=== PATIENT | female | born 1960 | race African-American/Black ===

== ENCOUNTER 2017-05-14 08:06 | Emergency (ER) | payer MEDICAID, OTHER ==
[~2017-05-14] VITALS: Ht 154.9 cm; Wt 95.0 kg
[~2017-05-14 08:06] MED LIST: AMLO10TA80 PO; ATOR20TA65 PO; CARV12.545 PO; CEPH-569 PO; FOLI0.8T23 PO; FURO80TA3 PO; INSU100I28 SQ; PENT400T2 PO; TRAM50TA3 PO
[2017-05-14 09:17] LABS: BASOPHILS % 0.7 % (0.0-2.0); EOSINOPHILS % 5.6 % (0.0-5.0); HEMATOCRIT. 28.2 % (36.0-48.0); HEMOGLOBIN. 8.7 g/dL (12.0-16.0); LYMPHOCYTES % 21.9 % (20.0-50.0); MEAN CORPUSCULAR HEMOGLOBIN 26.1 pg (28.0-32.0); MEAN CORPUSCULAR VOLUME 85.1 fL (81.0-99.0); MEAN PLATELET VOLUME 7.5 fl (7.4-10.4); NEUTROPHILS % 62.8 % (40.0-76.0); PLATELET 338 x1000/uL (130-400); RED BLOOD CELL COUNT 3.31 mill/uL (4.2-5.4); RED CELL DISTRIBUTION WIDTH 17.5 % (11.6-14.6)
[2017-05-14 09:25] LABS: INR 1.1; PARTIAL THROMBOPLASTIN TIME 28.9 sec (23.4-31.0)
[2017-05-14 09:29] LABS: CHLORIDE 102 mEq/L (98-107)
[2017-05-14 09:34] LABS: CREATINE KINASE 206 IU/L (26-192); TROPONIN I < 0.02 ng/mL (0.00-0.04)
[2017-05-14 12:23] LABS: BG BASE EXCESS -3.6 mmol/L (-2.0-2.0); BG CARBOXYHEMOGLOBIN 0.4 % (0.5-1.5); BG DEOXYHEMOGLOBIN 2.9 % (0.0-5.0); BG FRACTION INSPIRED OXYGEN 21; BG HCO3 ACT 20.9 mmol/L (22.0-26.0); BG METHEMOGLOBIN 0.3 % (0.0-1.5); BG OXYGEN SATURATION 97.1 % (92.0-98.5); BG OXYHEMOGLOBIN 96.4 % (94.0-97.0); BG PCO2 35.5 mmHg (35.0-45.0); BG PH 7.388 (7.350-7.450); BG PO2 95.3 mmHg (75.0-100.0); BG SAMPLE SITE LEFT RADIAL; BG TOTAL HEMOGLOBIN 9.7 g/dL (12.0-18.0); BG VENT MODE ROOM AIR
[2017-05-14 15:37] VITALS: BP 122/79
== END 2017-05-14 15:38 | disposition left against medical advice (07) ==
LOC: ER 08:24 → CANBEDREQ 15:39
DX: I13.2 Hypertensive heart and chronic kidney disease with heart failure and with stage 5 chronic kidney disease, or end stage renal disease (principal); E11.22 Type 2 diabetes mellitus with diabetic chronic kidney disease; I50.9 Heart failure, unspecified; N18.5 Chronic kidney disease, stage 5; D63.1 Anemia in chronic kidney disease; R42 Dizziness and giddiness; Z79.4 Long term (current) use of insulin; Z79.899 Other long term (current) drug therapy
CPT/HCPCS: 36415; 36600; 70450; 71045; 80053; 82375; 82550; 82553; 82805; 82962; 83735; 83880; 84484; 85025; 85610; 85730; 93005; 99285; Z7610

== ENCOUNTER 2019-05-27 09:02 | Emergency (ER) | payer MEDICAID ==
[~2019-05-27] VITALS: Ht 154.9 cm; Wt 90.0 kg
[~2019-05-27 09:02] MED LIST changes: +PENT400T16 PO; -PENT400T2 PO
[2019-05-27] MEDS ORDERED: ACETAMINOPHEN 325MG TABLET PO STA (10:57)
[2019-05-27 11:27] LABS: BASOPHILS % 0.5 % (0.0-2.0); EOSINOPHILS % 3.7 % (0.0-5.0); HEMATOCRIT. 30.5 % (36.0-48.0); HEMOGLOBIN. 9.5 g/dL (12.0-16.0); LYMPHOCYTES % 13.6 % (20.0-50.0); MEAN CORPUSCULAR HEMOGLOBIN 26.7 pg (28.0-32.0); MEAN CORPUSCULAR VOLUME 85.5 fL (81.0-99.0); MEAN PLATELET VOLUME 8.4 fl (7.4-10.4); MONOCYTES % 7.7 % (2.0-8.0); NEUTROPHILS % 74.5 % (40.0-76.0); PLATELET 297 x1000/uL (130-400); RED BLOOD CELL COUNT 3.56 mill/uL (4.2-5.4); RED CELL DISTRIBUTION WIDTH 15.1 % (11.6-14.6)
[2019-05-27 11:34] LABS: CHLORIDE 105 mEq/L (98-107)
[2019-05-27 15:51] LABS: CLARITY URINE CLEAR (CLEAR); COLOR URINE YELLOW (YELLOW); KETONES URINE NEGATIVE (NEGATIVE); LEUKOCYTE ESTERASE URINE NEGATIVE (NEGATIVE); NITRITE URINE NEGATIVE (NEGATIVE); OCCULT BLOOD URINE NEGATIVE (NEGATIVE); PROTEIN URINE NEGATIVE (NEGATIVE); SPECIFIC GRAVITY URINE 1.008 (1.005-1.030); UROBILINOGEN URINE 0.2 E.U./dL (0.2-1.0)
[2019-05-27 17:05] VITALS: BP 111/90
[2019-05-28] MEDS ORDERED: CALC0.5C10 PO (23:52)
[2019-05-28] MEDS ORDERED: ASPI-1497 PO (23:52)
== END 2019-05-27 17:05 | disposition home or self-care (01) ==
LOC: ER 11:49
DX: R53.81 Other malaise (principal); E11.9 Type 2 diabetes mellitus without complications; E78.00 Pure hypercholesterolemia, unspecified; I11.0 Hypertensive heart disease with heart failure; Z79.899 Other long term (current) drug therapy
CPT/HCPCS: 36415; 71045; 80053; 81003; 84484; 85025; 87804; 93005; 99285

== ENCOUNTER 2019-05-28 06:38 | Inpatient (IN) | payer MEDICAID ==
[~2019-05-28] VITALS: Ht 157.5 cm; Wt 90.7 kg
[2019-05-28] MEDS ORDERED: MAGNESIUM/ALUMINUM HYDROXIDE/SIMETHICONE 30ML UDC PO STA (11:33)
[2019-05-28 12:08] LABS: BASOPHILS % 0.7 % (0.0-2.0); EOSINOPHILS % 3.3 % (0.0-5.0); HEMOGLOBIN. 9.9 g/dL (12.0-16.0); LYMPHOCYTES % 14.8 % (20.0-50.0); MEAN CORPUSCULAR HEMOGLOBIN 26.8 pg (28.0-32.0); MEAN CORPUSCULAR VOLUME 86.2 fL (81.0-99.0); MEAN PLATELET VOLUME 8.8 fl (7.4-10.4); MONOCYTES % 7.8 % (2.0-8.0); NEUTROPHILS % 73.4 % (40.0-76.0); PLATELET 305 x1000/uL (130-400); RED BLOOD CELL COUNT 3.71 mill/uL (4.2-5.4); RED CELL DISTRIBUTION WIDTH 15.2 % (11.6-14.6)
[2019-05-28 12:18] LABS: CHLORIDE 107 mEq/L (98-107)
[2019-05-28] MEDS ORDERED: SODIUM CHLORIDE 0.9% 1000ML BAG (SEPSIS BOLUS) IV ONE (13:45)
[2019-05-28] MEDS ORDERED: LEVOFLOXACIN 750MG PREMIX 150 ML IV ONE (13:45)
[2019-05-28] MEDS ORDERED: HYDRALAZINE 20MG/ML VIAL IV PRN (18:30)
[2019-05-28] MEDS ORDERED: MORPHINE SULFATE 2 MG/ML CPJ (NOT FOR IM USE) IV PRN (18:30)
[2019-05-28] MEDS ORDERED: ONDANSETRON HCL 4MG/2ML INJ IV PRN (18:30)
[2019-05-28] MEDS ORDERED: DEXTROSE 50% WATER 50ML SYRINGE IV PRN (18:30)
[2019-05-28] MEDS ORDERED: GUAIFENESIN 200MG/10ML SUGAR FREE UDC PO PRN (18:30)
[2019-05-28] MEDS ORDERED: HYDROCODONE/ACETAMINOPHEN 10/325MG TABLET PO PRN (18:30)
[2019-05-28] MEDS ORDERED: DOCUSATE SODIUM 100MG CAPSULE PO PRN (18:30)
[2019-05-28] MEDS ORDERED: NA PHOS,M-B/NA PHOS,DI-BA ENEMA 118ML PR PRN (18:30)
[2019-05-28] MEDS ORDERED: ACETAMINOPHEN 325MG TABLET PO PRN (18:30)
[2019-05-28] MEDS ORDERED: MAGNESIUM/ALUMINUM HYDROXIDE/SIMETHICONE 30ML UDC PO PRN (18:30)
[2019-05-28] MEDS ORDERED: LORAZEPAM 2MG/ML CPJ IV PRN (18:30)
[2019-05-28] MEDS ORDERED: IPRATROPIUM/ALBUTEROL 0.5-3(2.5)MG/3ML NEB NEB PRN (18:30)
[2019-05-28] MEDS ORDERED: DIPHENHYDRAMINE 50MG/ML VIAL IV PRN (18:30)
[2019-05-28] MEDS ORDERED: BLOOD SUGAR DIAGNOSTIC STRIP TEST SCH (21:15)
[2019-05-28 22:00] VITALS: BP 161/66
[2019-05-28] MEDS ORDERED: INSULIN LISPRO 100 UNITS/ML SUBCUT SCH (22:30)
[2019-05-28] MEDS: SODIUM CHLORIDE 0.9% INJ 3ML FLUSH IVF SCH (22:58)
[2019-05-28] MEDS: CLONIDINE 0.1MG TABLET PO PRN (22:58)
[2019-05-28] MEDS ORDERED: CALC0.5C10 PO (23:52)
[2019-05-28] MEDS ORDERED: ASPI-1497 PO (23:52)
[2019-05-29] VITALS: BP 134/56
[2019-05-29 00:16] LABS: CREATINE KINASE 189 IU/L (26-192)
[2019-05-29 00:17] LABS: CREATINE KINASE MB FRACTION 2.8 ng/mL (0.5-3.6)
[2019-05-29 04:00] VITALS: BP 148/50
[2019-05-29] MEDS: SODIUM CHLORIDE 0.9% INJ 3ML FLUSH IVF SCH ×3 (06:19→21:37)
[2019-05-29 06:57] LABS: CHLORIDE 108 mEq/L (98-107)
[2019-05-29 06:58] LABS: BASOPHILS % 0.5 % (0.0-2.0); EOSINOPHILS % 2.7 % (0.0-5.0); HEMATOCRIT. 26.8 % (36.0-48.0); HEMOGLOBIN. 8.4 g/dL (12.0-16.0); LYMPHOCYTES % 16.2 % (20.0-50.0); MEAN CORPUSCULAR HEMOGLOBIN 26.7 pg (28.0-32.0); MEAN CORPUSCULAR VOLUME 85.4 fL (81.0-99.0); MONOCYTES % 9.3 % (2.0-8.0); NEUTROPHILS % 71.3 % (40.0-76.0); PLATELET 259 x1000/uL (130-400); RED BLOOD CELL COUNT 3.14 mill/uL (4.2-5.4); RED CELL DISTRIBUTION WIDTH 15.7 % (11.6-14.6)
[2019-05-29 07:06] LABS: CREATINE KINASE 187 IU/L (26-192)
[2019-05-29 07:08] LABS: T4 FREE 1.25 ng/dL (0.76-1.46)
[2019-05-29 07:09] LABS: CREATINE KINASE MB FRACTION 2.7 ng/mL (0.5-3.6)
[2019-05-29 08:00] VITALS: BP 167/56
[2019-05-29] MEDS: BLOOD SUGAR DIAGNOSTIC STRIP TEST SCH ×4 (08:07→21:37)
[2019-05-29] MEDS: INSULIN LISPRO 100 UNITS/ML SUBCUT SCH ×4 (09:30→21:00)
[2019-05-29] MEDS: ENOXAPARIN 40MG/0.4ML SYR SUBCUT SCH (09:32)
[2019-05-29] MEDS: CLONIDINE 0.1MG TABLET PO PRN (09:32)
[2019-05-29] MEDS ORDERED: INFLUENZA VIRUS VACCINE(AFLURIA) 0.5ML SYR IM ONE (10:00)
[2019-05-29 10:36] LABS: T4 FREE 1.24 ng/dL (0.76-1.46)
[2019-05-29] MEDS ORDERED: ATORVASTATIN CALCIUM 20MG TABLET PO SCH (13:15)
[2019-05-29] MEDS: ASPIRIN 81MG EC TABLET PO SCH (13:45)
[2019-05-29] MEDS: AMLODIPINE 10MG TABLET PO SCH (13:46)
[2019-05-29] MEDS: CARVEDILOL 12.5MG TABLET PO SCH ×2 (13:46→21:36)
[2019-05-29 16:51] LABS: CREATINE KINASE 192 IU/L (26-192)
[2019-05-29 16:53] LABS: CREATINE KINASE MB FRACTION 2.7 ng/mL (0.5-3.6)
[2019-05-29] MEDS: CALCITRIOL 0.5MCG CAPSULE PO SCH (18:35)
[2019-05-29] MEDS: PANTOPRAZOLE 40MG DR TABLET PO SCH (18:35)
[2019-05-29] MEDS: SODIUM CHLORIDE 0.45% 1,000 ML IV SCH (18:37)
[2019-05-29] MEDS: SEVELAMER CARBONATE 800 MG TABLET PO SCH (18:39)
[2019-05-29 20:00] VITALS: BP 140/49
[2019-05-29] MEDS: ATORVASTATIN CALCIUM 20MG TABLET PO SCH (21:36)
[2019-05-29 23:16] LABS: CLARITY URINE CLEAR (CLEAR); COLOR URINE YELLOW (YELLOW); KETONES URINE NEGATIVE (NEGATIVE); LEUKOCYTE ESTERASE URINE NEGATIVE (NEGATIVE); NITRITE URINE NEGATIVE (NEGATIVE); OCCULT BLOOD URINE NEGATIVE (NEGATIVE); PROTEIN URINE 1+ (NEGATIVE); SPECIFIC GRAVITY URINE 1.009 (1.005-1.030); UROBILINOGEN URINE 0.2 E.U./dL (0.2-1.0)
[2019-05-30] VITALS: BP 157/65
[2019-05-30 01:13] LABS: CREATINE KINASE 199 IU/L (26-192)
[2019-05-30 01:14] LABS: CREATINE KINASE MB FRACTION 2.9 ng/mL (0.5-3.6)
[2019-05-30 04:00] VITALS: BP 155/61
[2019-05-30] MEDS: SODIUM CHLORIDE 0.9% INJ 3ML FLUSH IVF SCH ×3 (05:53→21:30)
[2019-05-30] MEDS: BLOOD SUGAR DIAGNOSTIC STRIP TEST SCH ×4 (07:40→20:18)
[2019-05-30 08:00] VITALS: BP 155/64
[2019-05-30 08:00] LABS: CHLORIDE 108 mEq/L (98-107)
[2019-05-30 08:08] LABS: BASOPHILS % 0.8 % (0.0-2.0); EOSINOPHILS % 2.7 % (0.0-5.0); HEMATOCRIT. 29.6 % (36.0-48.0); HEMOGLOBIN. 9.3 g/dL (12.0-16.0); LYMPHOCYTES % 16.2 % (20.0-50.0); MEAN CORPUSCULAR HEMOGLOBIN 26.9 pg (28.0-32.0); MEAN CORPUSCULAR VOLUME 86.1 fL (81.0-99.0); MEAN PLATELET VOLUME 8.8 fl (7.4-10.4); MONOCYTES % 8.7 % (2.0-8.0); NEUTROPHILS % 71.6 % (40.0-76.0); PLATELET 284 x1000/uL (130-400); RED BLOOD CELL COUNT 3.44 mill/uL (4.2-5.4); RED CELL DISTRIBUTION WIDTH 15.1 % (11.6-14.6)
[2019-05-30 08:09] LABS: CREATINE KINASE 195 IU/L (26-192)
[2019-05-30 08:12] LABS: CREATINE KINASE MB FRACTION 2.8 ng/mL (0.5-3.6)
[2019-05-30] MEDS: ASPIRIN 81MG EC TABLET PO SCH (10:30)
[2019-05-30] MEDS: SEVELAMER CARBONATE 800 MG TABLET PO SCH ×3 (10:30→18:36)
[2019-05-30] MEDS: AMLODIPINE 10MG TABLET PO SCH (10:31)
[2019-05-30] MEDS: CARVEDILOL 12.5MG TABLET PO SCH ×2 (10:31→21:29)
[2019-05-30] MEDS: ENOXAPARIN 40MG/0.4ML SYR SUBCUT SCH (10:32)
[2019-05-30] MEDS: INSULIN LISPRO 100 UNITS/ML SUBCUT SCH ×4 (10:33→20:18)
[2019-05-30] MEDS: CALCITRIOL 0.5MCG CAPSULE PO SCH (10:53)
[2019-05-30] MEDS ORDERED: MAGNESIUM 1 G PREMIX 100 ML IV NR (11:00)
[2019-05-30] MEDS: SODIUM CHLORIDE 0.45% 1,000 ML IV SCH (11:02)
[2019-05-30 12:00] VITALS: BP 118/55
[2019-05-30] MEDS: PANTOPRAZOLE 40MG DR TABLET PO SCH (12:31)
[2019-05-30 16:00] VITALS: BP 145/52
[2019-05-30 20:19] LABS: TOTAL IRON BINDING CAPACITY 261 ug/dL (250-450)
[2019-05-30 20:48] VITALS: BP 165/55
[2019-05-30] MEDS: ATORVASTATIN CALCIUM 20MG TABLET PO SCH (21:29)
[2019-05-31] VITALS: BP 190/58
[2019-05-31] MEDS: SODIUM CHLORIDE 0.45% 1,000 ML IV SCH ×2 (03:20→20:00)
[2019-05-31 04:00] VITALS: BP 112/58
[2019-05-31] MEDS: SODIUM CHLORIDE 0.9% INJ 3ML FLUSH IVF SCH ×2 (06:00→22:00)
[2019-05-31 06:43] LABS: BASOPHILS % 0.7 % (0.0-2.0); EOSINOPHILS % 3.4 % (0.0-5.0); HEMATOCRIT. 28.5 % (36.0-48.0); HEMOGLOBIN. 8.8 g/dL (12.0-16.0); LYMPHOCYTES % 15.3 % (20.0-50.0); MEAN CORPUSCULAR HEMOGLOBIN 26.4 pg (28.0-32.0); MEAN CORPUSCULAR VOLUME 85.4 fL (81.0-99.0); MEAN PLATELET VOLUME 8.9 fl (7.4-10.4); MONOCYTES % 8.8 % (2.0-8.0); NEUTROPHILS % 71.8 % (40.0-76.0); PLATELET 274 x1000/uL (130-400); RED BLOOD CELL COUNT 3.34 mill/uL (4.2-5.4); RED CELL DISTRIBUTION WIDTH 14.8 % (11.6-14.6)
[2019-05-31] MEDS: BLOOD SUGAR DIAGNOSTIC STRIP TEST SCH ×4 (07:40→21:00)
[2019-05-31 08:00] VITALS: BP 140/48
[2019-05-31] MEDS: INSULIN LISPRO 100 UNITS/ML SUBCUT SCH ×4 (08:10→21:00)
[2019-05-31] MEDS: DOCUSATE SODIUM 250MG CAPSULE PO SCH ×2 (09:00→17:00)
[2019-05-31] MEDS: SEVELAMER CARBONATE 800 MG TABLET PO SCH ×3 (09:55→18:47)
[2019-05-31] MEDS: CALCITRIOL 0.5MCG CAPSULE PO SCH (09:55)
[2019-05-31] MEDS: CARVEDILOL 12.5MG TABLET PO SCH ×2 (09:55→21:00)
[2019-05-31] MEDS: ENOXAPARIN 40MG/0.4ML SYR SUBCUT SCH (09:55)
[2019-05-31] MEDS: PANTOPRAZOLE 40MG DR TABLET PO SCH (09:56)
[2019-05-31] MEDS: AMLODIPINE 10MG TABLET PO SCH (09:59)
[2019-05-31] MEDS: ASPIRIN 81MG EC TABLET PO SCH (10:00)
[2019-05-31 12:00] VITALS: BP 134/55
[2019-05-31] MEDS ORDERED: EPOETIN ALFA 10000UNITS/ML VIAL SUBCUT ONE (18:45)
[2019-05-31 20:00] VITALS: BP 142/67
[2019-05-31] MEDS ORDERED: EPOETIN ALFA 10000UNITS/ML VIAL SUBCUT SCH (21:00)
[2019-05-31] MEDS: ATORVASTATIN CALCIUM 20MG TABLET PO SCH (21:00)
[2019-06-01] VITALS (7 sets, daily range): BP systolic 128–162; BP diastolic 47–67
[2019-06-01] MEDS: SODIUM CHLORIDE 0.9% INJ 3ML FLUSH IVF SCH ×3 (06:00→20:59)
[2019-06-01] MEDS: PANTOPRAZOLE 40MG DR TABLET PO SCH (07:40)
[2019-06-01] MEDS: INSULIN LISPRO 100 UNITS/ML SUBCUT SCH ×3 (08:10→18:27)
[2019-06-01] MEDS: SEVELAMER CARBONATE 800 MG TABLET PO SCH ×3 (08:10→18:26)
[2019-06-01] MEDS: BLOOD SUGAR DIAGNOSTIC STRIP TEST SCH ×4 (08:37→20:59)
[2019-06-01] MEDS: CALCITRIOL 0.5MCG CAPSULE PO SCH (08:59)
[2019-06-01] MEDS: ENOXAPARIN 40MG/0.4ML SYR SUBCUT SCH (08:59)
[2019-06-01] MEDS: ASPIRIN 81MG EC TABLET PO SCH (08:59)
[2019-06-01] MEDS: FERROUS SULFATE 325MG TABLET PO SCH ×3 (08:59→18:26)
[2019-06-01] MEDS: AMLODIPINE 10MG TABLET PO SCH (08:59)
[2019-06-01] MEDS: CARVEDILOL 12.5MG TABLET PO SCH ×2 (08:59→20:59)
[2019-06-01] MEDS: DOCUSATE SODIUM 250MG CAPSULE PO SCH ×2 (09:00→18:25)
[2019-06-01 11:12] LABS: HEMATOCRIT 27.7 % (36.0-48.0); HEMOGLOBIN 8.8 g/dL (12.0-16.0); MEAN CORPUSCULAR HEMOGLOBIN 27.1 pg (28.0-32.0); MEAN CORPUSCULAR VOLUME 85.8 fL (81.0-99.0); PLATELET 258 x1000/uL (130-400); RED BLOOD CELL COUNT 3.24 mill/uL (4.2-5.4); RED CELL DISTRIBUTION WIDTH 14.7 % (11.6-14.6)
[2019-06-01] MEDS: SODIUM CHLORIDE 0.45% 1,000 ML IV SCH (11:48)
[2019-06-01] MEDS: ATORVASTATIN CALCIUM 20MG TABLET PO SCH (20:59)
[2019-06-02] VITALS: BP 93/56
[2019-06-02 04:00] VITALS: BP 124/61
[2019-06-02] MEDS: SODIUM CHLORIDE 0.45% 1,000 ML IV SCH (05:20)
[2019-06-02] MEDS: SODIUM CHLORIDE 0.9% INJ 3ML FLUSH IVF SCH (05:21)
[2019-06-02] MEDS: INSULIN LISPRO 100 UNITS/ML SUBCUT SCH ×2 (06:02→08:10)
[2019-06-02] MEDS: BLOOD SUGAR DIAGNOSTIC STRIP TEST SCH (07:01)
[2019-06-02 07:19] LABS: BASOPHILS % 0.4 % (0.0-2.0); EOSINOPHILS % 2.4 % (0.0-5.0); HEMATOCRIT. 27.7 % (36.0-48.0); HEMOGLOBIN. 8.7 g/dL (12.0-16.0); MEAN CORPUSCULAR HEMOGLOBIN 26.9 pg (28.0-32.0); MEAN CORPUSCULAR VOLUME 85.5 fL (81.0-99.0); MEAN PLATELET VOLUME 8.7 fl (7.4-10.4); MONOCYTES % 7.5 % (2.0-8.0); NEUTROPHILS % 75.7 % (40.0-76.0); PLATELET 258 x1000/uL (130-400); RED BLOOD CELL COUNT 3.24 mill/uL (4.2-5.4)
[2019-06-02] MEDS: SEVELAMER CARBONATE 800 MG TABLET PO SCH (10:07)
[2019-06-02] MEDS: ENOXAPARIN 40MG/0.4ML SYR SUBCUT SCH (10:07)
[2019-06-02] MEDS: CALCITRIOL 0.5MCG CAPSULE PO SCH (10:07)
[2019-06-02] MEDS: AMLODIPINE 10MG TABLET PO SCH (10:08)
[2019-06-02] MEDS: DOCUSATE SODIUM 250MG CAPSULE PO SCH (10:08)
[2019-06-02] MEDS: FERROUS SULFATE 325MG TABLET PO SCH (10:08)
[2019-06-02] MEDS: ASPIRIN 81MG EC TABLET PO SCH (10:08)
[2019-06-02] MEDS: CARVEDILOL 12.5MG TABLET PO SCH (10:09)
[2019-06-02] MEDS: PANTOPRAZOLE 40MG DR TABLET PO SCH (10:09)
[2019-06-02 11:32] VITALS: BP 155/65
[2019-06-04] MEDS ORDERED: EPOETIN ALFA 10000UNITS/ML VIAL SUBCUT SCH (21:00)
[2019-06-07] MEDS ORDERED: EPOETIN ALFA 10000UNITS/ML VIAL SUBCUT SCH (21:00)
== END 2019-06-02 12:00 | disposition home or self-care (01) | DRG 469 ==
LOC: ER 06:38 → 7WST 14:10 → ENRESERV 20:54
PROVIDERS: ADMIT Internal Medicine; ATTEND Internal Medicine
DX: N17.0 Acute kidney failure with tubular necrosis (principal); E11.22 Type 2 diabetes mellitus with diabetic chronic kidney disease; I13.0 Hypertensive heart and chronic kidney disease with heart failure and stage 1 through stage 4 chronic kidney disease, or unspecified chronic kidney disease; I50.32 Chronic diastolic (congestive) heart failure; K80.20 Calculus of gallbladder without cholecystitis without obstruction; K42.9 Umbilical hernia without obstruction or gangrene; D64.9 Anemia, unspecified; E03.9 Hypothyroidism, unspecified; E66.9 Obesity, unspecified; E83.42 Hypomagnesemia; K21.9 Gastro-esophageal reflux disease without esophagitis; E78.5 Hyperlipidemia, unspecified; N18.4 Chronic kidney disease, stage 4 (severe); N25.81 Secondary hyperparathyroidism of renal origin; Z79.4 Long term (current) use of insulin; Z79.82 Long term (current) use of aspirin; Z88.8 Allergy status to other drugs, medicaments and biological substances; Z79.899 Other long term (current) drug therapy; Z68.36 Body mass index [BMI] 36.0-36.9, adult
CPT/HCPCS: 36415; 71045; 74176; 76700; 80048; 80053; 80061; 81003; 82270; 82550; 82553; 82728; 82962; 83036; 83540; 83550; 83605; 83735; 83880; 83970; 84100; 84439; 84443; 84484; 85025; 85027; 85379; 90686; 93005; 93306; 93970; 99291; J0885; J1650; J1815; J1956; J3475; J7030

== ENCOUNTER 2019-06-28 16:53 | Inpatient (IN) | payer MEDICAID ==
[~2019-06-28] VITALS: Ht 154.9 cm; Wt 96.7 kg
[~2019-06-28 16:53] MED LIST changes: +ASPI-1497 PO; +CALC0.5C10 PO; -CEPH-569 PO; -TRAM50TA3 PO
[2019-06-28 23:04] LABS: BASOPHILS % 0.5 % (0.0-2.0); EOSINOPHILS % 3.1 % (0.0-5.0); HEMATOCRIT. 32.7 % (36.0-48.0); HEMOGLOBIN. 10.4 g/dL (12.0-16.0); LYMPHOCYTES % 25.6 % (20.0-50.0); MEAN CORPUSCULAR VOLUME 85.2 fL (81.0-99.0); MEAN PLATELET VOLUME 8.6 fl (7.4-10.4); MONOCYTES % 6.6 % (2.0-8.0); NEUTROPHILS % 64.2 % (40.0-76.0); PLATELET 326 x1000/uL (130-400); RED BLOOD CELL COUNT 3.84 mill/uL (4.2-5.4); RED CELL DISTRIBUTION WIDTH 15.8 % (11.6-14.6)
[2019-06-28 23:12] LABS: CHLORIDE 99 mEq/L (98-107)
[2019-06-29] MEDS ORDERED: SODIUM CHLORIDE 0.9% 1,000 ML IV ONE
[2019-06-29 03:30] VITALS: BP 144/44
[2019-06-29] MEDS ORDERED: DEXTROSE 50% WATER 50ML SYRINGE IV PRN ×2 (07:00)
[2019-06-29] MEDS: INSULIN LISPRO 100 UNITS/ML SUBCUT SCH ×4 (07:15→21:00)
[2019-06-29] MEDS: BLOOD SUGAR DIAGNOSTIC STRIP TEST SCH ×4 (07:50→21:00)
[2019-06-29 08:00] VITALS: BP 146/66
[2019-06-29 09:00] VITALS: BP 146/66
[2019-06-29] MEDS: SODIUM CHLORIDE 0.9% 1,000 ML IV SCH ×2 (09:55→15:00)
[2019-06-29] MEDS: AMLODIPINE 10MG TABLET PO SCH (09:55)
[2019-06-29 09:59] LABS: HEMATOCRIT 31.4 % (36.0-48.0); HEMOGLOBIN 9.9 g/dL (12.0-16.0); MEAN CORPUSCULAR HEMOGLOBIN 27.1 pg (28.0-32.0); MEAN CORPUSCULAR VOLUME 85.8 fL (81.0-99.0); PLATELET 311 x1000/uL (130-400); RED BLOOD CELL COUNT 3.66 mill/uL (4.2-5.4); RED CELL DISTRIBUTION WIDTH 15.8 % (11.6-14.6)
[2019-06-29] MEDS ORDERED: FUROSEMIDE 40MG/4ML VIAL IV SCH (10:00)
[2019-06-29] MEDS ORDERED: CARVEDILOL 12.5MG TABLET PO SCH (10:00)
[2019-06-29 12:00] VITALS: BP 155/54
[2019-06-29] MEDS ORDERED: SODIUM BICARBONATE 4% (2.4MEQ) 5ML VIAL IV ONE (12:03)
[2019-06-29] MEDS ORDERED: LIDOCAINE HCL 1% 20ML VIAL (Pyxis) INJ ONE (12:03)
[2019-06-29 16:00] VITALS: BP 142/77
[2019-06-29] MEDS ORDERED: HEPARIN SODIUM 1,000 UNIT/1ML VIAL IV ONE (19:30)
[2019-06-29] MEDS: CARVEDILOL 3.125 MG TABLET PO SCH (21:00)
[2019-06-30] VITALS: BP 138/79
[2019-06-30 04:00] VITALS: BP 135/48
[2019-06-30] MEDS: BLOOD SUGAR DIAGNOSTIC STRIP TEST SCH ×4 (05:49→21:00)
[2019-06-30 06:53] LABS: BASOPHILS % 0.5 % (0.0-2.0); EOSINOPHILS % 2.2 % (0.0-5.0); HEMATOCRIT. 29.8 % (36.0-48.0); HEMOGLOBIN. 9.3 g/dL (12.0-16.0); LYMPHOCYTES % 17.5 % (20.0-50.0); MEAN CORPUSCULAR HEMOGLOBIN 26.9 pg (28.0-32.0); MEAN CORPUSCULAR VOLUME 86.3 fL (81.0-99.0); MONOCYTES % 9.3 % (2.0-8.0); NEUTROPHILS % 70.5 % (40.0-76.0); PLATELET 273 x1000/uL (130-400); RED BLOOD CELL COUNT 3.46 mill/uL (4.2-5.4); RED CELL DISTRIBUTION WIDTH 15.5 % (11.6-14.6)
[2019-06-30 07:16] LABS: PHOSPHORUS 1.9 mg/dL (2.5-4.9)
[2019-06-30 07:46] VITALS: BP 133/54
[2019-06-30] MEDS: INSULIN LISPRO 100 UNITS/ML SUBCUT SCH ×4 (07:50→21:00)
[2019-06-30] MEDS: AMLODIPINE 10MG TABLET PO SCH (09:03)
[2019-06-30] MEDS: CARVEDILOL 3.125 MG TABLET PO SCH ×2 (09:04→22:05)
[2019-06-30] MEDS: FUROSEMIDE 40MG/4ML VIAL IVP SCH (09:04)
[2019-06-30] MEDS: FAMOTIDINE 20MG/2ML VIAL IV SCH (10:37)
[2019-06-30 11:47] VITALS: BP 112/38
[2019-06-30 15:41] VITALS: BP 107/42
[2019-06-30 20:00] VITALS: BP 150/56
[2019-06-30] MEDS: SODIUM CHLORIDE 0.9% 1,000 ML IV SCH (22:02)
[2019-07-01] VITALS: BP 128/82
[2019-07-01] MEDS: BLOOD SUGAR DIAGNOSTIC STRIP TEST SCH ×4 (06:43→21:29)
[2019-07-01] MEDS: SODIUM CHLORIDE 0.9% 1,000 ML IV SCH ×2 (06:47→14:36)
[2019-07-01 06:54] LABS: CHLORIDE 102 mEq/L (98-107)
[2019-07-01 07:17] LABS: BASOPHILS % 0.4 % (0.0-2.0); HEMATOCRIT. 29.1 % (36.0-48.0); HEMOGLOBIN. 9.1 g/dL (12.0-16.0); LYMPHOCYTES % 23.6 % (20.0-50.0); MEAN CORPUSCULAR VOLUME 85.9 fL (81.0-99.0); MEAN PLATELET VOLUME 8.9 fl (7.4-10.4); MONOCYTES % 8.1 % (2.0-8.0); NEUTROPHILS % 64.9 % (40.0-76.0); PLATELET 251 x1000/uL (130-400); RED BLOOD CELL COUNT 3.39 mill/uL (4.2-5.4); RED CELL DISTRIBUTION WIDTH 15.8 % (11.6-14.6)
[2019-07-01] MEDS: INSULIN LISPRO 100 UNITS/ML SUBCUT SCH ×4 (07:50→21:30)
[2019-07-01 08:08] VITALS: BP 129/80
[2019-07-01] MEDS: FAMOTIDINE 20MG/2ML VIAL IV SCH (09:52)
[2019-07-01] MEDS: FUROSEMIDE 40MG/4ML VIAL IVP SCH (09:52)
[2019-07-01] MEDS: AMLODIPINE 10MG TABLET PO SCH (09:52)
[2019-07-01] MEDS: CARVEDILOL 3.125 MG TABLET PO SCH ×2 (09:53→21:29)
[2019-07-01 12:09] VITALS: BP 131/47
[2019-07-01] MEDS ORDERED: POTASSIUM CHLORIDE 20MEQ TABLET SR PO SCH (13:00)
[2019-07-01 16:05] VITALS: BP 107/41
[2019-07-01 20:00] VITALS: BP 127/62
[2019-07-02] VITALS: BP 129/39
[2019-07-02 04:00] VITALS: BP 126/55
[2019-07-02] MEDS: INSULIN LISPRO 100 UNITS/ML SUBCUT SCH ×4 (06:24→21:00)
[2019-07-02] MEDS: BLOOD SUGAR DIAGNOSTIC STRIP TEST SCH ×4 (06:24→20:38)
[2019-07-02 07:27] LABS: BASOPHILS % 0.5 % (0.0-2.0); EOSINOPHILS % 3.1 % (0.0-5.0); HEMATOCRIT. 28.9 % (36.0-48.0); HEMOGLOBIN. 8.9 g/dL (12.0-16.0); LYMPHOCYTES % 20.5 % (20.0-50.0); MEAN CORPUSCULAR HEMOGLOBIN 26.6 pg (28.0-32.0); MEAN CORPUSCULAR VOLUME 85.8 fL (81.0-99.0); MEAN PLATELET VOLUME 9.1 fl (7.4-10.4); MONOCYTES % 7.7 % (2.0-8.0); NEUTROPHILS % 68.2 % (40.0-76.0); PLATELET 250 x1000/uL (130-400); RED BLOOD CELL COUNT 3.36 mill/uL (4.2-5.4); RED CELL DISTRIBUTION WIDTH 15.7 % (11.6-14.6)
[2019-07-02 07:56] LABS: PHOSPHORUS 2.4 mg/dL (2.5-4.9)
[2019-07-02 08:00] VITALS: BP 119/52
[2019-07-02] MEDS: FUROSEMIDE 40MG/4ML VIAL IVP SCH (09:25)
[2019-07-02] MEDS: FAMOTIDINE 20MG/2ML VIAL IV SCH (09:25)
[2019-07-02] MEDS: AMLODIPINE 10MG TABLET PO SCH (09:25)
[2019-07-02] MEDS: CARVEDILOL 3.125 MG TABLET PO SCH ×2 (09:26→20:56)
[2019-07-02 12:00] VITALS: BP 146/56
[2019-07-02 14:05] LABS: TOTAL IRON BINDING CAPACITY 246 ug/dL (250-450)
[2019-07-02 14:13] LABS: PROTHROMBIN TIME 10.7 sec (9.6-11.0)
[2019-07-02 14:22] LABS: HEPATITIS B SURFACE ANTIGEN NEGATIVE
[2019-07-02] MEDS: SODIUM CHLORIDE 0.9% 1,000 ML IV SCH ×2 (15:00→16:26)
[2019-07-02 20:00] VITALS: BP 124/68
[2019-07-03] VITALS (14 sets, daily range): BP systolic 125–166; BP diastolic 38–76
[2019-07-03] MEDS: SODIUM CHLORIDE 0.9% 1,000 ML IV SCH ×4 (02:49→21:15)
[2019-07-03] MEDS: BLOOD SUGAR DIAGNOSTIC STRIP TEST SCH ×4 (07:06→21:08)
[2019-07-03] MEDS: INSULIN LISPRO 100 UNITS/ML SUBCUT SCH ×4 (07:50→21:10)
[2019-07-03] MEDS ORDERED: CLINDAMYCIN 600MG PREMIX 50 ML IV SCH (08:00)
[2019-07-03] MEDS: AMLODIPINE 10MG TABLET PO SCH (09:00)
[2019-07-03] MEDS: CARVEDILOL 3.125 MG TABLET PO SCH ×2 (09:00→21:07)
[2019-07-03 09:07] LABS: BASOPHILS % 0.4 % (0.0-2.0); EOSINOPHILS % 3.3 % (0.0-5.0); HEMATOCRIT. 27.3 % (36.0-48.0); HEMOGLOBIN. 8.6 g/dL (12.0-16.0); LYMPHOCYTES % 18.2 % (20.0-50.0); MEAN CORPUSCULAR HEMOGLOBIN 26.8 pg (28.0-32.0); MEAN CORPUSCULAR VOLUME 85.3 fL (81.0-99.0); MEAN PLATELET VOLUME 8.7 fl (7.4-10.4); MONOCYTES % 7.9 % (2.0-8.0); NEUTROPHILS % 70.2 % (40.0-76.0); PLATELET 232 x1000/uL (130-400); RED CELL DISTRIBUTION WIDTH 15.7 % (11.6-14.6)
[2019-07-03 09:20] LABS: PHOSPHORUS 1.3 mg/dL (2.5-4.9)
[2019-07-03] MEDS ORDERED: SODIUM BICARBONATE 4% (2.4MEQ) 5ML VIAL IV ONE (09:31)
[2019-07-03] MEDS ORDERED: LIDOCAINE HCL 1% 20ML VIAL (Pyxis) INJ ONE (09:31)
[2019-07-03] MEDS ORDERED: LIDOCAINE HCL/EPINEPHRINE 1%-EPI 1:100,000 20 ML VIAL ONE (09:32)
[2019-07-03] MEDS ORDERED: HEPARIN 1000 UNITS/ML 10ML ONE (09:42)
[2019-07-03] MEDS ORDERED: FENTANYL CITRATE/PF 50MCG/ML 2ML VIAL ONE (10:11)
[2019-07-03] MEDS ORDERED: FENTANYL CITRATE/PF 50MCG/ML 2ML VIAL IV ONE (10:45)
[2019-07-03] MEDS: FAMOTIDINE 20MG/2ML VIAL IV SCH (12:09)
[2019-07-03 13:06] LABS: A/G RATIO 0.7 (0.7-1.7); ALBUMIN 2.9 g/dL (2.9-4.4); ALPHA-1-GLOBULIN 0.3 g/dL (0.0-0.4); ALPHA-2-GLOBULIN 0.9 g/dL (0.4-1.0); GAMMA GLOBULINS 1.9 g/dL (0.4-1.8); M-SPIKE Not Observed g/dL (Not Observed); TOTAL PROTEIN SERUM 6.9 g/dL (6.0-8.5)
[2019-07-03] MEDS ORDERED: ALPRAZOLAM 0.25 MG TABLET PO NR (14:15)
[2019-07-04] VITALS (7 sets, daily range): BP systolic 106–150; BP diastolic 40–82
[2019-07-04] MEDS: SODIUM CHLORIDE 0.9% 1,000 ML IV SCH ×3 (05:08→23:39)
[2019-07-04] MEDS: BLOOD SUGAR DIAGNOSTIC STRIP TEST SCH ×4 (06:43→21:23)
[2019-07-04] MEDS: INSULIN LISPRO 100 UNITS/ML SUBCUT SCH ×4 (07:50→21:00)
[2019-07-04] MEDS: CARVEDILOL 3.125 MG TABLET PO SCH ×2 (08:52→21:23)
[2019-07-04] MEDS: FAMOTIDINE 20MG/2ML VIAL IV SCH (08:53)
[2019-07-04] MEDS: AMLODIPINE 10MG TABLET PO SCH (08:53)
[2019-07-04] MEDS ORDERED: ALPRAZOLAM 0.25 MG TABLET PO NR (14:02)
[2019-07-04] MEDS ORDERED: ALPR0.25 MT (14:02)
[2019-07-05] VITALS: BP 118/50
[2019-07-05 04:00] VITALS: BP 124/54
[2019-07-05] MEDS: SODIUM CHLORIDE 0.9% 1,000 ML IV SCH ×2 (06:20→15:10)
[2019-07-05] MEDS: BLOOD SUGAR DIAGNOSTIC STRIP TEST SCH ×3 (06:20→17:20)
[2019-07-05 07:01] LABS: BASOPHILS % 0.7 % (0.0-2.0); EOSINOPHILS % 3.9 % (0.0-5.0); LYMPHOCYTES % 19.5 % (20.0-50.0); MEAN CORPUSCULAR HEMOGLOBIN 27.7 pg (28.0-32.0); MEAN CORPUSCULAR VOLUME 85.9 fL (81.0-99.0); MEAN PLATELET VOLUME 9.1 fl (7.4-10.4); MONOCYTES % 10.9 % (2.0-8.0); PLATELET 211 x1000/uL (130-400); RED BLOOD CELL COUNT 2.91 mill/uL (4.2-5.4); RED CELL DISTRIBUTION WIDTH 16.2 % (11.6-14.6)
[2019-07-05 07:14] LABS: PHOSPHORUS 2.3 mg/dL (2.5-4.9)
[2019-07-05] MEDS: INSULIN LISPRO 100 UNITS/ML SUBCUT SCH ×3 (07:31→18:25)
[2019-07-05] MEDS: FAMOTIDINE 20MG/2ML VIAL IV SCH (08:44)
[2019-07-05] MEDS: AMLODIPINE 10MG TABLET PO SCH (08:46)
[2019-07-05] MEDS: CARVEDILOL 3.125 MG TABLET PO SCH (08:46)
[2019-07-05 12:13] VITALS: BP 149/58
[2019-07-05] MEDS ORDERED: LACTULOSE 20G/30ML UDC PO NR (12:45)
[2019-07-05 16:10] VITALS: BP 133/52
[2019-07-05 20:00] VITALS: BP 149/62
[2019-07-05 23:33] VITALS: BP 145/60
[2019-07-06] VITALS: BP 145/60
== END 2019-07-06 00:29 | disposition home or self-care (01) | DRG 469 ==
LOC: ER 16:53 → 5WST 06-29 00:40 → EDBEDREQ 06-29 00:43 → EDBEDREQTM 06-29 00:43 → ENRESERV 06-29 01:45 → 6WST 06-29 13:35
PROVIDERS: ADMIT Internal Medicine; ATTEND Internal Medicine
PROC: 02HV33Z Insertion of Infusion Device into Superior Vena Cava, Percutaneous Approach (ICD-10-PCS; principal; 2019-06-29)
PROC: B5181ZA Fluoroscopy of Superior Vena Cava using Low Osmolar Contrast, Guidance (ICD-10-PCS; 2019-06-29)
PROC: B548ZZA Ultrasonography of Superior Vena Cava, Guidance (ICD-10-PCS; 2019-06-29)
PROC: 5A1D70Z Performance of Urinary Filtration, Intermittent, Less than 6 Hours Per Day (ICD-10-PCS; 2019-06-29)
PROC: 5A1D70Z Performance of Urinary Filtration, Intermittent, Less than 6 Hours Per Day (ICD-10-PCS; 2019-07-02)
PROC: 0JH63XZ Insertion of Tunneled Vascular Access Device into Chest Subcutaneous Tissue and Fascia, Percutaneous Approach (ICD-10-PCS; 2019-07-03)
PROC: 02HV33Z Insertion of Infusion Device into Superior Vena Cava, Percutaneous Approach (ICD-10-PCS; 2019-07-03)
PROC: B5181ZA Fluoroscopy of Superior Vena Cava using Low Osmolar Contrast, Guidance (ICD-10-PCS; 2019-07-03)
PROC: B548ZZA Ultrasonography of Superior Vena Cava, Guidance (ICD-10-PCS; 2019-07-03)
PROC: 02PYX3Z Removal of Infusion Device from Great Vessel, External Approach (ICD-10-PCS; 2019-07-03)
PROC: 5A1D70Z Performance of Urinary Filtration, Intermittent, Less than 6 Hours Per Day (ICD-10-PCS; 2019-07-05)
DX: N17.9 Acute kidney failure, unspecified (principal); I13.2 Hypertensive heart and chronic kidney disease with heart failure and with stage 5 chronic kidney disease, or end stage renal disease; G92 Toxic encephalopathy; E83.52 Hypercalcemia; E11.22 Type 2 diabetes mellitus with diabetic chronic kidney disease; E11.65 Type 2 diabetes mellitus with hyperglycemia; N18.6 End stage renal disease; E03.9 Hypothyroidism, unspecified; E66.9 Obesity, unspecified; E78.5 Hyperlipidemia, unspecified; K29.70 Gastritis, unspecified, without bleeding; K59.00 Constipation, unspecified; R94.31 Abnormal electrocardiogram [ECG] [EKG]; R00.1 Bradycardia, unspecified; I44.7 Left bundle-branch block, unspecified; I50.32 Chronic diastolic (congestive) heart failure; D50.9 Iron deficiency anemia, unspecified; T41.3X5A Adverse effect of local anesthetics, initial encounter; Y92.230 Patient room in hospital as the place of occurrence of the external cause; K80.20 Calculus of gallbladder without cholecystitis without obstruction; Z20.828 Contact with and (suspected) exposure to other viral communicable diseases; K27.9 Peptic ulcer, site unspecified, unspecified as acute or chronic, without hemorrhage or perforation; Z79.4 Long term (current) use of insulin; Z79.899 Other long term (current) drug therapy; Z99.2 Dependence on renal dialysis; Z88.1 Allergy status to other antibiotic agents; Z79.82 Long term (current) use of aspirin; Z79.84 Long term (current) use of oral hypoglycemic drugs; Z68.41 Body mass index [BMI] 40.0-44.9, adult
CPT/HCPCS: 36415; 36558; 36589; 71045; 76700; 76937; 77001; 80048; 80053; 82330; 82962; 83036; 83540; 83550; 83735; 83970; 84100; 84155; 84165; 85025; 85027; 86705; 86803; 87340; 87635; 93005; 99152; 99153; 99285; C1750; C1752; C1769; C1887; J1642; J1644; J1815; J1940; J3010; J3490; J7030; G0500